=== PATIENT | female | born 1960 | race Caucasian/White ===

== ENCOUNTER 2019-06-20 17:00 | Outpatient (RCR) | payer BC ==
[~2019-06-20 17:00] MED LIST: FUROSEMIDE40 MG PO; IMITREX25 MG PO; NORCO 5-325 TA1 EACH PO; POTASSIUM CHLO10 ME1 PO; SENNA-S TABLET1 EA PO; SIMVASTATIN40 MG PO; TEMAZEPAM30 MG PO; VENLAFAXINE HC225 MG PO; VITAMIN B-650 MG PO
== END 2019-06-24 ==
LOC: PT 17:00
PROVIDERS: ATTEND Neurological Surgery
DX: M51.17 Intervertebral disc disorders with radiculopathy, lumbosacral region (principal); M62.81 Muscle weakness (generalized)

== ENCOUNTER 2019-07-09 16:00 | Outpatient (RCR) | payer BC | END 2019-07-25 | LOC: PT 16:00 | PROVIDERS: ATTEND Neurological Surgery | DX: M51.17 Intervertebral disc disorders with radiculopathy, lumbosacral region (principal); M62.81 Muscle weakness (generalized) ==

== ENCOUNTER → 2019-08-08 | Day surgery (SDC) | payer BC ==
[2019-08-05 16:06] LABS: BASOPHILS % 0.6 % (0.0-1.0); EOSINOPHILS # (AUTO) 0.1 (0.0-0.4); EOSINOPHILS % 2.1 % (0.0-6.0); HEMATOCRIT 41.8 % (34.2-44.1); HEMOGLOBIN 13.8 g/dL (12.0-16.0); LYMPHOCYTES # (AUTO) 2.4 (1.0-3.2); LYMPHOCYTES % 37.2 % (18.0-39.1); MEAN CORPUSCULAR HEMOGLOBIN 30.9 pg (28-32); MEAN CORPUSCULAR VOLUME 93.7 fL (81-99); MONOCYTES # (AUTO) 0.5 (0.2-0.8); MONOCYTES % 7.9 % (4.4-11.3); NEUTROPHILS # (AUTO) 3.3 (2.1-6.9); NEUTROPHILS % 51.9 % (38.7-80.0); PLATELET COUNT 183 x10e3/uL (140-360); RED BLOOD COUNT 4.46 x10e6/uL (3.6-5.1); RED CELL DISTRIBUTION WIDTH 13.2 % (11.7-14.4)
[2019-08-05 16:16] LABS: INR 0.87; PROTHROMBIN TIME 12.3 seconds (11.9-14.5)
[2019-08-05 16:17] LABS: PARTIAL THROMBOPLASTIN TIME 25.3 seconds (23.8-35.5)
[2019-08-05 16:23] LABS: ALANINE AMINOTRANSFERASE 53 IU/L (0-55); ALBUMIN 3.7 g/dL (3.5-5.0); ALBUMIN/GLOBULIN RATIO 1.2 (0.8-2.0); ALKALINE PHOSPHATASE 61 IU/L (40-150); BLOOD UREA NITROGEN 16 mg/dL (7-26); BUN/CREATININE RATIO 21 (6-25); CALCIUM 9.2 mg/dL (8.4-10.2); CARBON DIOXIDE 26 mmol/L (22-29); CHLORIDE 106 mmol/L (98-107); CREATININE, SERUM 0.77 mg/dL (0.57-1.11); EST GLOMERULAR FILTRATION RATE > 60 ML/MIN (60-); GLUCOSE 84 mg/dL (74-118); SODIUM 138 mmol/L (136-145)
[~2019-08-08] MED LIST changes: +DEXAMETHASONE SOD PHOS 10 MG/1 ML VIAL ONE; +EVISTA60 MG PO; +FENTANYL CITRATE/PF 100MCG/2 ML INJ ONE; +IOPAMIDOL 300 MG/ML 15ML VIAL IT ONE; +LIDOCAINE HCL 1% 30ML-PF VIAL ONE; +MIDAZOLAM HCL 2 MG/2 ML VIAL ONE; +MULTI-VITAMIN1 EACH PO; +PROPOFOL IV EMULSION 10 MG/ML 20 ML VIAL ONE
--- OUTSIDE RECORDS SUMMARY | 2019-08-08 05:10 | XMS REPORT | Summary of Care ---
Author Author Wei Fuentes M.A. Organization Unknown Address Unknown Phone Unavailable Care Team Providers Care Shot Peen Operator Name Role Phone FIORELLA Flood, KAREN Unavailable Unavailable SILVIA Mistry, DHARMESH Unavailable Unavailable ZHOU NJose, EDSON Unavailable Unavailable Wei Fuentes M.A. Unavailable Unavailable FRANKY ROJAS FL, CRISTOBAL Unavailable Unavailable Unavailable Unavailable Functional Status Name Dates Details Functional status health issues are not documented Status: Name Dates Details Cognitive status health issues are not documented Status: Problems Name Dates Details Chronic viral hepatitis C (070.54, B18.2) Status: Active Arthritis (716.90, M19.90) Status: Active Visit for screening mammogram (V76.12, Z12.31) Status: Active Ovarian cancer (183.0, C56.9) Status: Active Encounter for follow-up surveillance of cervical cancer (V67.9, Z08) Status: Active Abdominal pain (789.00, R10.9) Status: Active Shortness of breath on exertion (786.05, R06.02) Status: Active Dysuria (788.1, R30.0) Status: Active Osteoporosis (733.00, M81.0) Status: Active Fatigue (780.79, R53.83) Status: Active Weight loss, abnormal (783.21, R63.4) Status: Active Breast cancer screening (V76.10, Z12.31) Status: Active Vaginal dryness (625.8, N89.8) Status: Active Encounter for screening colonoscopy (V76.51, Z12.11) Status: Active Screening for osteoporosis (V82.81, Z13.820) Status: Active Symptomatic menopausal or female climacteric states (627.2, N95.1) Status: Active Medications Name Dates Details Simvastatin 40 MG Oral Tablet Active Furosemide TABS * Refills: 0 Active Vicodin TABS * Refills: 0 Active Vitamin B-6 100 MG Oral Tablet * Refills: 0 Active Letrozole 2.5 MG Oral Tablet TAKE 1 TABLET DAILY * Quantity: 90 Refills: 2 FIORELLA King.SHEA GonzalezIE * Start : 17-Oct-2012 Active Imitrex TABS * Refills: 0 Active Temazepam CAPS * Refills: 0 Active Senna CAPS * Refills: 0 Active Venlafaxine HCl ER 225 MG Oral Tablet Extended Release 24 Hour TAKE 1 TABLET DAILY * Quantity: 90 Refills: 2 EPPERSON N.P., EDSON * Start : 08-Oct-2014 Active Multiple Vitamin TABS * Refills: 0 * Start : 21-Dec-2016 Active Vitamin D-3 1000 UNIT Oral Capsule * Refills: 0 * Start : 21-Dec-2016 Active Vitamin C Oral Tablet Chewable * Refills: 0 * Start : 21-Dec-2016 Active Estradiol 0.1 MG/GM Vaginal Cream INSERT 1/4 APPLICATORFUL (1GM) VAGINALLY THREE TIMES WEEKLY. * Quantity: 1 Refills: 2 EPPERSON N.P., EDSON * Start : 20-Dec-2017 Active 42.5 GM Tube Venlafaxine HCl ER 37.5 MG Oral Capsule Extended Release 24 Hour TAKE 1 CAPSULE ONCE DAILY WITH FOOD. * Quantity: 30 Refills: 5 EPPERSON N.P., EDSON * Start : 11-Jul-2018 Active Gabapentin 300 MG Oral Capsule TAKE 1 CAPSULE AT BEDTIME. * Quantity: 30 Refills: 0 DHARMESH VEGA M.D. * Start : 11-Jul-2018 Active Allergies and Adverse Reactions Name Dates Details Naprosyn TABS (Allergy) Reaction: Swelling Status: Active Past Medical History Name Dates Details History of Arnold-Chiari malformation (741.00, Q07.00) Status: Resolved History of Chemotherapeutics Status: Resolved History of Chemotherapeutics Status: Resolved History of Colon Cancer (V10.05) Status: Resolved History of Colon obstruction (560.9, K56.609) Status: Resolved History of constipation (V12.79, Z87.19) Status: Resolved History of Drug-induced neutropenia (288.03, D70.2) Status: Resolved History of Hernia (553.9, K46.9) Status: Resolved History of Hydronephrosis of right kidney (591, N13.30) Status: Resolved History of Intra-abdominal and pelvic swelling of mass or lump (789.30, R19.00) Status: Resolved History of Migraine without status migrainosus, not intractable (346.90, G43.909) Status: Resolved History of Other and unspecified ovarian cysts (620.2, N83.20) Status: Resolved History of shortness of breath (V13.89, Z87.898) Status: Resolved Procedures Procedure Dates Details [place] Digital Mammo Screening Ted [id number] Date: 06-Mar-2019 [O] Dexa Scan ([facility] X-Ray) [id number] Date: 06-Mar-2019 CT Abdomen/Pelvis w contrast [id number] Date: 06-Mar-2019 CT Chest w contrast [id number] Date: 06-Mar-2019 [place] Bone Density Scan [id number] Date: 11-Mar-2019 History of Neuroplasty Decompression Median Nerve At Carpal Tunnel Completed History of Shoulder Surgery Completed History of Arthrodesis Cervical Completed History of Salpingo-oophorect Bilat W/ Omentect, Total Abd Hysterect, Radical Dissect Completed Immunization Name Dates Details Immunizations not documented Family History Name Dates Details Family history of Gastric Cancer (V16.0) Comments: Family History Status: Active Name Dates Details Family history of Colon Cancer (V16.0) Status: Active Name Dates Details Family history of Arthritis (V17.7) Status: Active Family history of Transient Ischemic Attack Status: Active Name Dates Details Family history of Arthritis (V17.7) Status: Active Family history of Transient Ischemic Attack Status: Active Family history of Lung Cancer (V16.1) Status: Active Name Dates Details Family history of Diabetes Mellitus (V18.0) Status: Active Social History Name Dates Details - Status: Name Dates Details Former smoker Vital Signs Date Test Result Details [id number] BP Systolic 109 mm[Hg] Status: Comments: Location: LUE; Position: Sitting BP Diastolic 73 mm[Hg] Status: Comments: Location: LUE; Position: Sitting Height 64.02 in Status: Weight 115.52 lb Status: Body Mass Index Calculated 19.82 kg/m2 Status: Body Surface Area Calculated 1.55 m2 Status: Temperature 98.7 f Status: Comments: Method: Oral Heart Rate 77 /min Status: Respiration Rate 17 /min Status: Comments: Quality: Normal Results Date Description Value Details Results not documented Plan of Care Name Dates Details Planned Observations Planned Goals not documented Interventions Provided Labs/Procedures/Imaging* MA Bone Density Scan [id number]; To Be Done: 11 Mar 2019 Instructions Name Dates Details Instructions not documented Encounters Appointment; CRISTOBAL WILKINS M.D. Encounter Diagnosis: Problem not documented On: 07-Jun-2017 9:20 Appointment; CRISTOBAL WILKINS M.D. Encounter Diagnosis: Problem not documented On: 06-Dec-2017 10:20 Appointment; CRISTOBAL WILKINS M.D. Encounter Diagnosis: Problem not documented On: 20-Dec-2017 11:40 Appointment; CRISTOBAL WILKINS M.D. Encounter Diagnosis: Problem not documented On: 21-Mar-2018 13:40 Appointment; CRISTOBAL WILKINS M.D. Encounter Diagnosis: Problem not documented On: 21-Mar-2018 13:40 Appointment; CRISTOBAL WILKINS M.D. Encounter Diagnosis: Problem not documented On: 11-Jul-2018 8:40 Appointment; CRISTOBAL WILKINS M.D. Encounter Diagnosis: Problem not documented On: 09-Jan-2019 10:20 Appointment; CRISTOBAL WILKINS M.D. Encounter Diagnosis: Problem not documented On: 06-Mar-2019 13:40
--- OUTSIDE RECORDS SUMMARY | 2019-08-08 05:10 | XMS REPORT ---
Author Author [facility] Address Unknown Phone Unavailable Care Team Providers Care Roller Print Tender Name Role Phone Unavailable Unavailable Problems This patient has no known problems. Allergies, Adverse Reactions, Alerts This patient has no known allergies or adverse reactions. Medications This patient has no known medications. Encounters Start Date/Time End Date/Time Encounter Type Admission Type Attending [facility] Care Facility Care Department Encounter ID 2019-04-22 08:48:28 Outpatient [id number] 2019-03-29 08:21:00 2019-03-29 08:21:00 Outpatient [id number] 2019-03-19 07:35:00 2019-03-19 07:35:00 Outpatient [id number]
[2019-08-08 07:10] VITALS: BP 105/73
== END | disposition home or self-care (01) ==
LOC: OR 05:04
PROVIDERS: ATTEND Physical Medicine & Rehabilitation Pain Medicine
DX: M54.16 Radiculopathy, lumbar region (principal); M54.12 Radiculopathy, cervical region; M81.0 Age-related osteoporosis without current pathological fracture; M53.3 Sacrococcygeal disorders, not elsewhere classified; Z98.1 Arthrodesis status; E78.5 Hyperlipidemia, unspecified; B19.20 Unspecified viral hepatitis C without hepatic coma; K57.90 Diverticulosis of intestine, part unspecified, without perforation or abscess without bleeding; Z88.8 Allergy status to other drugs, medicaments and biological substances; Z85.43 Personal history of malignant neoplasm of ovary; Z01.810 Encounter for preprocedural cardiovascular examination; Z01.812 Encounter for preprocedural laboratory examination; Z85.038 Personal history of other malignant neoplasm of large intestine; Z87.891 Personal history of nicotine dependence
CPT/HCPCS: 36415; 64483; 80053; 85025; 85610; 85730; 93005; J1100; J2001; J2250; J2704; J3010; Q9967; 77003

== ENCOUNTER → 2019-08-29 | Day surgery (SDC) | payer BC, OTHER ==
[~2019-08-29] MED LIST changes: -FENTANYL CITRATE/PF 100MCG/2 ML INJ ONE; +IOPAMIDOL 200 MG/ML 20 ML VIAL IT ONE; -IOPAMIDOL 300 MG/ML 15ML VIAL IT ONE; +LIDOCAINE HCL 2% LOCAL INJ 5 ML SDV VIAL INJ ONE
[2019-08-29 07:15] VITALS: BP 105/69
== END | disposition home or self-care (01) ==
LOC: OR 05:31
PROVIDERS: ATTEND Physical Medicine & Rehabilitation Pain Medicine
DX: M54.16 Radiculopathy, lumbar region (principal); M54.12 Radiculopathy, cervical region; Z98.1 Arthrodesis status; M81.0 Age-related osteoporosis without current pathological fracture; G43.909 Migraine, unspecified, not intractable, without status migrainosus; B19.20 Unspecified viral hepatitis C without hepatic coma; Z88.8 Allergy status to other drugs, medicaments and biological substances; Z85.038 Personal history of other malignant neoplasm of large intestine; Z85.43 Personal history of malignant neoplasm of ovary
CPT/HCPCS: 64483; J1100; J2001 ×2; J2250; J2704; Q9967; 77003

== ENCOUNTER 2022-09-30 10:26 | Outpatient (RCR) | payer OTHER ==
[~2022-09-30 10:26] MED LIST changes: -DEXAMETHASONE SOD PHOS 10 MG/1 ML VIAL ONE; -IOPAMIDOL 200 MG/ML 20 ML VIAL IT ONE; -LIDOCAINE HCL 1% 30ML-PF VIAL ONE; -LIDOCAINE HCL 2% LOCAL INJ 5 ML SDV VIAL INJ ONE; -MIDAZOLAM HCL 2 MG/2 ML VIAL ONE; -PROPOFOL IV EMULSION 10 MG/ML 20 ML VIAL ONE
== END 2022-10-25 ==
LOC: OT 10:26
PROVIDERS: ATTEND Plastic Surgery
DX: M18.0 Bilateral primary osteoarthritis of first carpometacarpal joints (principal); M25.541 Pain in joints of right hand; M25.542 Pain in joints of left hand
CPT/HCPCS: L3913 ×2